=== PATIENT | female | born 1985 | race Caucasian/White ===

== ENCOUNTER 2018-10-28 16:01 | Inpatient (IN) ==
[2018-10-28] MEDS ORDERED: fentaNYL Inj 100 MCG/2 ML VIAL IV PRN (20:16)
[2018-10-28] MEDS ORDERED: OXYTOCIN 10 UNIT/1 ML IM PRN (20:16)
[2018-10-28] MEDS ORDERED: ONDANSETRON 4 MG/2 ML VIAL IVP PRN (20:16)
[2018-10-28] MEDS ORDERED: Carboprost Inj 250 MCG/ML AMP IM PRN (20:16)
[2018-10-28] MEDS ORDERED: MISOPROSTOL 200 MCG TABLET RECTAL PRN (20:16)
[2018-10-28] MEDS ORDERED: BUTORPHANOL TARTRATE 2 MG/1 ML VIAL IVP PRN (20:16)
[2018-10-28] MEDS ORDERED: METHYLERGONOVINE MALEATE 0.2 MG/1 ML VIAL IM PRN (20:16)
[2018-10-28] MEDS ORDERED: Phenylephrine Inj 50 MCG in Sodium Chloride 0.9% vial 0.5 ML IVP PRN (20:16)
[2018-10-28] MEDS ORDERED: NALOXONE 0.4 MG/1 ML VIAL IVP PRN (20:16)
[2018-10-28] MEDS ORDERED: CALCIUM CARBONATE 500 MG (TUMS) CHEWABLE TABLET PO PRN (20:16)
[2018-10-28] MEDS ORDERED: FAMOTIDINE 20 MG/2 ML VIAL IVP PRN ×2 (20:16)
[2018-10-28] MEDS ORDERED: Metoclopramide Inj 10 MG/2 ML VIAL IV PRN (20:16)
[2018-10-28] MEDS ORDERED: Lidocaine 1% 10 MG/ML - 20 ML VIAL SUBCUT PRN (20:16)
[2018-10-28] MEDS ORDERED: Naloxone Inj 0.01 MG in Sodium Chloride 0.9% vial 1 ML IVP PRN (20:16)
[2018-10-28] MEDS ORDERED: Zolpidem Tab 5 MG TAB PO PRN (20:16)
[2018-10-28] MEDS ORDERED: Misoprostol Tab 100 MCG TAB VAGINAL PRN (20:16)
[2018-10-28] MEDS ORDERED: LIDOCAINE HCL 2 % 10 ML JELLY URO-JECT TOPICAL PRN (20:16)
[2018-10-28] MEDS ORDERED: CITRIC ACID/SODIUM CITRATE 30 ML CUP PO PRN (20:16)
[2018-10-28] MEDS ORDERED: TERBUTALINE SULFATE 1 MG/1 ML SDV SUBCUT PRN (20:16)
[2018-10-28] MEDS ORDERED: ePHEDrine Inj 50 MG/ML AMP IVP PRN (20:16)
[2018-10-28] MEDS ORDERED: Nalbuphine Inj 20 MG/ML Ampule IVP PRN (20:16)
[2018-10-28] MEDS ORDERED: LIDOCAINE W/ SODIUM BICARB 0.5 ML SYR SUBD PRN (20:16)
[2018-10-28] MEDS ORDERED: CefOXitin Inj 2 GM in Sodium Chloride 0.9% 100 ML IV PRN (20:16)
[2018-10-28] MEDS ORDERED: diphenhydrAMINE 50 MG/1 ML VIAL IVP PRN (20:16)
[2018-10-28] MEDS ORDERED: Oxytocin 20 Units + LR 20 UNIT/1,000 ML BAG IV SCH (20:30)
[2018-10-28 21:31] LABS: Hematocrit [HCT] 35.8 % (37.0-47.0); Hemoglobin [HGB] 11.7 g/dL (12.0-16.0); MEAN CORPUSCULAR HGB CONC 32.7 g/dL (33-37); MEAN CORPUSCULAR VOLUME 98.6 FL (81-99); MEAN PLATELET VOLUME 11.6 FL (7.4-12.2); RED BLOOD COUNT 3.63 10^6/uL (4.20-5.40)
[2018-10-29] MEDS: Lactated Ringers-OB Dept 1,000 ML PRIMARY IV SCH ×2 (00:29→07:30)
[2018-10-29] MEDS ORDERED: Oxytocin 20 Units + LR 20 UNIT/1,000 ML BAG IV SCH ×2 (05:00→14:12)
[2018-10-29] MEDS ORDERED: Lidocaine/Epi Inj 1.5% 5 ML AMPUL EPIDURAL ONE (07:07)
[2018-10-29] MEDS ORDERED: Fent/Bupiv 2mcg/0.0625% Epid 250 ML ONE (07:08)
--- NOTE | 2018-10-29 07:33 | CRNA.PROGR ---
Anesthesia Time - Procedure/Recovery Time Start Date: 10/29/18 Anesthesia : Time In: 07:00 - Other Weight: 88.904 kg Height: 5 ft 4 in Body Mass Index (BMI): 33.6 Physical Status: P2 Anesthesia Type: Epidural Obstetrics: Planned vaginal delivery w/ neuraxial labor anesthesia/analog
--- NOTE | 2018-10-29 07:34 | CRNA.PROCE ---
Central Neuraxis Block Placemt - - Safety Measures: Time Out Taken - - Type of Block: Epidural Reason for Block: Analgesia Moniters Used During Block: SPO2, NIBP Skin Prep Used: ChloroPrep Draped: Yes Skin Infiltration - Enter Amount Used in Comment Field: 1% Xylocaine (mL): Yes (skin wheal) Spinal Needle Used: 18 Hustead 80 mm Local Anesthetic - Enter Amount Used in Comment Field: 1.5 % Xylocaine with Epinephrine 1:200,000 (mL): Yes (5ml) Number of Centimeters Catheter Threaded: 4 Bioclusive Dressing Applied: Yes Anesthesia Time - Other Weight: 88.904 kg Height: 5 ft 4 in Body Mass Index (BMI): 33.6
[2018-10-29] MEDS ORDERED: fentaNYL 2 MCG/BUPIVACAINE 0.0625%/NS 0.9% 250 ML BAG EPIDURAL SCH (07:45)
--- NOTE | 2018-10-29 08:26 | OB.PROGRES ---
Date of Service: 10/29/18 Time of Service: 08:22 Interval History: 32 yo at 39 1/7 week gestation by LMP and early u/s presented last night for elective IOL. She received one dose of 25 mcg cytotec pv. She has been chidi regularly since. She received an epidural about an hour ago, is much more comfortable. Objective - Cervical Exam Cervical Exam: 4-5/60/-2, ballotable, intact per RN Pooler: q2-4 minutes Heart Rate: baseline 130, mod variability, accels, no decels Heart Rate Interpretation Category: Category I - Labs CBC and BMP: 10/28/18 20:50 - Vital Signs Last Taken Vital Signs: Vital Signs - Last Taken Temperature 97.7 F 10/29/18 06:46 Pulse Rate 72 10/29/18 06:46 Respiratory Rate 18 10/29/18 06:46 Blood Pressure 127/67 10/29/18 06:46 Pulse Ox 98 10/29/18 06:46 Assessment and Plan - Patient Problems (1) Encounter for elective induction of labor Current Visit: Yes Status: Acute Code(s): Z34.90 - Encounter for supervision of normal , unspecified, unspecified trimester Support Text: 32 yo at 39 1/7 weeks gestation -Pitocin augmentation started -Plan to AROM when head is better engaged -Continue close observation -GBS negative -Rubella Immune
--- NOTE | 2018-10-29 14:02 | OB.DEL.SUM ---
Delivery Note Delivery Summary: 32 yo G3 now P3 was admitted last night for elective IOL at 39 0/7 weeks gestation. uncomplicated. She received one dose of cytotec pv 25 mcg just after mindnight and changed from 1/thick to 3-4/50/-3. Pitocin was added around 0700 for augmentation. I waited until just after noon today to break her water as the head was ballotable all morning. In 1 hour she progressed from 5 cm to complete. At 1314 she pushed with one contraction to the delivery of a TAGA female in OA position over an intact perineum with epidural anesthesia. No nuchal cord was noted. Her head, shoulders and body were delivered easily. Infant was placed on mom's abdomen. Cord clamping was delayed 1 minute. The cord was doubly clamped and cut by the father. Cord blood was collected. The cord was noted to have a true knot. Her placenta delivered spontaneously, intact, with a 3-vessel cord shortly thereafter. Pitocin was administered. Her vagina was inspected and she had a L periurethral hemostatic laceration and a R labial skid ivy, neither needed repair. EBL 100 cc. Mom and baby tolerated delivery well. Apgars 9,10. Lap and sponge counts were correct. - Patient Problems (1) Encounter for elective induction of labor Current Visit: Yes Status: Acute Code(s): Z34.90 - Encounter for supervision of normal , unspecified, unspecified trimester
[2018-10-29] MEDS ORDERED: ONDANSETRON 4 MG/2 ML VIAL IVP PRN (14:12)
[2018-10-29] MEDS ORDERED: Ondansetron ODT Tab 4 MG TAB PO PRN (14:12)
[2018-10-29] MEDS ORDERED: diphenhydrAMINE 50 MG/1 ML VIAL IVP PRN (14:12)
[2018-10-29] MEDS ORDERED: Lidocaine 1% 10 MG/ML - 20 ML VIAL INTRADERM PRN (14:12)
[2018-10-29] MEDS ORDERED: LANOLIN HPA 40 GM TUBE TOPICAL PRN (14:12)
[2018-10-29] MEDS ORDERED: LIDOCAINE HCL 2 % 10 ML JELLY URO-JECT TOPICAL PRN (14:12)
[2018-10-29] MEDS ORDERED: ACETAMINOPHEN 325 MG TABLET PO PRN (14:12)
[2018-10-29] MEDS ORDERED: diphenhydrAMINE 25 MG CAPSULE PO PRN (14:12)
[2018-10-29] MEDS ORDERED: CALCIUM CARBONATE 500 MG (TUMS) CHEWABLE TABLET PO PRN (14:12)
[2018-10-29] MEDS ORDERED: Nalbuphine Inj 20 MG/ML Ampule IVP PRN (14:12)
[2018-10-29] MEDS: BENZOCAINE/MENTHOL SPRAY 56 GM BOTTLE TOPICAL PRN (17:21)
[2018-10-29] MEDS: GLYCERIN/WITCH HAZEL 1 BOX TOPICAL PRN (17:21)
[2018-10-29] MEDS: IBUPROFEN 800 MG TABLET PO PRN (18:13)
[2018-10-29] MEDS: HYDROcodone-APAP 5 MG -325 MG TABLET PO PRN (22:14)
[2018-10-30 01:29] VITALS: O2SAT 97
[2018-10-30] MEDS: IBUPROFEN 800 MG TABLET PO PRN ×2 (03:44→12:35)
[2018-10-30 05:08] LABS: Hemoglobin [HGB] 12.7 g/dL (12.0-16.0); MEAN CORPUSCULAR HGB CONC 32.6 g/dL (33-37); MEAN CORPUSCULAR VOLUME 99.7 FL (81-99); RED BLOOD COUNT 3.91 10^6/uL (4.20-5.40)
[2018-10-30] MEDS: HYDROcodone-APAP 5 MG -325 MG TABLET PO PRN (08:09)
[2018-10-30 08:40] VITALS: BP 124/72; RESP 18; TEMP 98.2
[2018-10-30] MEDS ORDERED: DOCUSATE 100 MG CAPSULE PO SCH (09:00)
[2018-10-30] MEDS ORDERED: Prenatal Multivitamin Tab 1 TAB TAB PO SCH (09:00)
--- NOTE | 2018-10-30 09:27 | DCSUMMARY ---
Hospitalization Summary Admit Date: 10/28/18 Discharge Date: 10/30/18 Delivery Type: Vaginal Hospital Course: 32 yo G3 now P3 admitted at 39 1/7 weeks for elective IOL. See delivery note for full details. She had 1 dose of 25 mcg cytotec pv, thin pitocin augmentation but progressed slowly until AROM and progressed very rapidly after that. She pushed with 1 contraction to the delivery of a TAGA female weighing 6 lb 9.8 oz. / Postop Complications: none apparent Complications: none apparent Exam - Vitals Vital Signs: Vital Signs Temperature 98.2 F Temperature Source Temporal Artery Scan Pulse Rate [Pulse Oximeter] 68 Pulse Rate [Left hand] 59 Pulse Rate 76 Respiratory Rate 18 Blood Pressure [Right Arm] 124/72 Blood Pressure 116/58 Pulse Ox [Left hand] 96 Pulse Ox 97 Oxygen Flow Rate RA Oxygen Delivery Method [Left Room Air hand] Oxygen Delivery Method Room Air Height 5 ft 4 in Weight 196 lb - General General Appearance: No Acute Distress - Head Head Exam: Normal Inspection - Eye Eye Exam: POSITIVE: Normal Appearance - Respiratory Respiratory Exam: POSITIVE: Clear to Auscultation - Bilaterally, Breathing Non Labored. NEGATIVE: Rhonci, Crackles, Wheezes - Cardiovascular Cardiovascular Exam: POSITIVE: RRR - GI/Abdominal GI/Abdominal Exam: POSITIVE: Normal Bowel Sounds Additional GI/Abdominal Exam Details: uterus firm at umbilicus - Extremities Extremities Exam: POSITIVE: Normal Inspection, No Edema Present. NEGATIVE: Calf Tenderness - Neurological Neurological Exam: POSITIVE: Alert, Oriented x 3 - Psychiatric Psychiatric Exam: POSITIVE: Normal Affect, Normal Mood Patient Problems - Patient Problem List (1) Encounter for elective induction of labor Current Visit: Yes Status: Acute Code(s): Z34.90 - Encounter for supervision of normal , unspecified, unspecified trimester Support Text: 32 yo G3 now P3 PPD 1 s/p -Breast feeding well -Did require a dose of hydrocodone for cramping last night which helped. Rx for Motrin 800 mg #40 and norco 5/325 #10, colace sent in -Will want POP for contraception -D/c today, f/u with me 8 weeks pp, routine d/c instructions Category: Medical
[2018-10-30] MEDS: BENZOCAINE/MENTHOL SPRAY 56 GM BOTTLE TOPICAL PRN (12:35)
[2018-10-30] MEDS: GLYCERIN/WITCH HAZEL 1 BOX TOPICAL PRN (12:36)
== END 2018-10-30 15:45 | disposition home or self-care (01) | DRG 807 ==
LOC: OBIP 20:01
PROVIDERS: ADMIT Student in an Organized Health Care Education/Training Program; ATTEND Student in an Organized Health Care Education/Training Program